=== PATIENT | female | born 1965 | race Caucasian/White ===

== ENCOUNTER 2017-08-27 14:26 | Emergency (ER) | payer BC ==
[~2017-08-27] VITALS: Ht 177.8 cm; Wt 67.4 kg
[2017-08-27] MEDS ORDERED: SODIUM CHLORIDE FLUSH 10ML SYR IVF ONE (16:30)
[2017-08-27] MEDS ORDERED: ASPIRIN 81 MG TABLET CHEW PO ONE (16:30)
[2017-08-27 16:51] LABS: HEMATOCRIT 37.9 % (34.6-47.8); HEMOGLOBIN 12.7 g/dL (11.7-16.4); WHITE BLOOD COUNT 6.1 x10^3/uL (3.4-10)
[2017-08-27 16:58] LABS: BLOOD UREA NITROGEN 17 mg/dL (7-18)
[2017-08-27 17:06] LABS: IS PT STATUS REG ER OR PRE ER? YES
[2017-08-27] MEDS ORDERED: ASPIRIN 81 MG TABLET CHEW ONE (17:14)
[2017-08-27 18:18] VITALS: BP 109/72
== END 2017-08-27 18:20 | disposition home or self-care (01) ==
LOC: ED 17:36
DX: R07.89 Other chest pain (principal); E11.9 Type 2 diabetes mellitus without complications; E78.5 Hyperlipidemia, unspecified; F41.9 Anxiety disorder, unspecified; I10 Essential (primary) hypertension
CPT/HCPCS: 36415; 71020; 80048; 82040; 84484; 85025; 93005; 99285